=== PATIENT | female | born 1985 | race African-American/Black ===

== ENCOUNTER 2019-06-26 11:17 | Emergency (ER) | payer MEDICAID ==
[~2019-06-26] VITALS: Ht 160 cm; Wt 113.0 kg
[2019-06-26] MEDS ORDERED: IPRATROPIUM BROMIDE (0.02%) 0.5MG/2.5ML NEB HHN STA (13:31)
[2019-06-26] MEDS ORDERED: ALBUTEROL (0.083%) 2.5MG/3ML NEB HHN STA (13:31)
[2019-06-26] MEDS ORDERED: PREDNISONE 20MG TABLET PO STA (13:31)
[2019-06-26 16:00] VITALS: BP 124/77
== END 2019-06-26 16:02 | disposition home or self-care (01) ==
LOC: ER 11:17
DX: J45.901 Unspecified asthma with (acute) exacerbation (principal); F17.210 Nicotine dependence, cigarettes, uncomplicated; Z71.6 Tobacco abuse counseling
CPT/HCPCS: 71045; 99283; 99406; J7512; J7611

== ENCOUNTER 2019-08-15 12:22 | Emergency (ER) | payer MEDICAID, OTHER ==
[~2019-08-15] VITALS: Ht 160 cm; Wt 116.0 kg
[2019-08-15] MEDS ORDERED: ACETAMINOPHEN 500MG TABLET PO ONE (15:45)
[2019-08-15] MEDS ORDERED: KETOROLAC 30MG/ML VIAL IM ONE (15:45)
[2019-08-15] MEDS ORDERED: HYDROCODONE/ACETAMINOPHEN 5/325MG TABLET PO ONE (17:30)
[2019-08-15 17:59] VITALS: BP 120/64
== END 2019-08-15 17:59 | disposition home or self-care (01) ==
LOC: ER 14:35
DX: N94.6 Dysmenorrhea, unspecified (principal); J45.909 Unspecified asthma, uncomplicated
CPT/HCPCS: 96372; 99283; J1885

== ENCOUNTER 2024-02-27 15:05 | Emergency (ER) | payer MEDICAID, OTHER ==
[~2024-02-27] VITALS: Ht 160 cm; Wt 107.0 kg
[2024-02-27 15:22] VITALS: O2SAT 100
[2024-02-27 15:44] LABS: BASOPHILS % 0.8 % (0.0-2.0); EOSINOPHILS % 8.9 % (0.0-5.0); HEMOGLOBIN. 11.1 g/dL (12.0-16.0); LYMPHOCYTES % 29.3 % (20.0-50.0); MEAN CORPUSCULAR HGB CONC 33.6 g/dL (31.0-37.0); MEAN CORPUSCULAR VOLUME 89.5 fL (81.0-99.0); MEAN PLATELET VOLUME 8.1 fl (7.4-10.4); MONOCYTES % 10.6 % (2.0-8.0); NEUTROPHILS % 50.4 % (40.0-76.0); PLATELET 353 x1000/uL (130-400); RED BLOOD CELL COUNT 3.69 mill/uL (4.2-5.4); RED CELL DISTRIBUTION WIDTH 13.4 % (11.6-14.6); WHITE BLOOD COUNT 6.8 x1000/uL (4.5-11.0)
[2024-02-27 15:45] LABS: CHLORIDE 110 mEq/L (98-107)
[2024-02-27 15:46] LABS: SODIUM 141 mEq/L (136-145)
[2024-02-27 15:47] LABS: CALCIUM 9.1 mg/dL (8.7-10.4); CARBON DIOXIDE 28 mEq/L (21-32)
[2024-02-27 15:51] LABS: CREATININE 1.2 mg/dL (0.6-1.0)
[2024-02-27 15:52] LABS: GLUCOSE 63 mg/dL (70-105); UREA NITROGEN BLOOD 13 mg/dL (9-23)
[2024-02-27] MEDS ORDERED: FERR325T6 MT (17:38)
[2024-02-27 18:13] VITALS: BP 149/91; PULSE 63; RESP 16; TEMP 36.66960; O2SAT 100
== END 2024-02-27 18:58 | disposition home or self-care (01) ==
LOC: ER 15:05
DX: R42 Dizziness and giddiness (principal); D64.9 Anemia, unspecified
CPT/HCPCS: 36415; 80048; 82962; 85025; 93005; 99284